=== PATIENT | male | born 2005 | race Two or more races ===

== ENCOUNTER 2025-06-08 20:47 | Emergency (ER) | payer OTHER ==
[~2025-06-08] VITALS: Ht 167.6 cm; Wt 83.9 kg
[2025-06-08] MEDS ORDERED: LEVALBUTEROL HCL 0.63 MG/3 ML SOLUTION IH SCH (22:00)
[2025-06-08] MEDS ORDERED: METHYLPREDNISOLONE SOD SUCC 40 MG VIAL IV SCH (22:00)
[2025-06-08 22:22] LABS: BASO % 0.3 % (0.1-1.2); EOS # 0.16 (0.04-0.54); EOS % 1.3 % (0.7-7.0); LYMPH # 1.13 (1.18-3.74); LYMPH % 9.4 % (19.3-53.1); MEAN PLATELET VOLUME 10.00 fl (9.4-12.4); MONO # 1.10 (0.24-0.82); MONO % 9.2 % (4.7-12.5); NEUT # 9.53 (1.56-6.13); NEUT % 79.5 % (34.0-71.1); RED CELL DISTRIBUTION WIDTH 12.2 % (11.6-14.4)
[2025-06-08 23:38] LABS: COVID-19 AG NEGATIVE (NEGATIVE)
[2025-06-09 00:16] VITALS: BP 115/72; O2SAT 97
== END 2025-06-09 00:18 | disposition home or self-care (01) ==
LOC: ER 20:47 → EMR PED 21:01
PROVIDERS: Emergency Medicine Pediatric Emergency Medicine
DX: J40 Bronchitis, not specified as acute or chronic (principal); J32.9 Chronic sinusitis, unspecified; R06.02 Shortness of breath; Z20.822 Contact with and (suspected) exposure to COVID-19
CPT/HCPCS: 36415; 70210; 71046; 94640; 96365; 96366; 99283; J3490